=== PATIENT | female | born 1950 | race Caucasian/White ===

== ENCOUNTER 2017-06-24 10:24 | Emergency (ER) | payer OTHER, MEDICAID ==
[~2017-06-24] VITALS: Ht 157.5 cm; Wt 73.9 kg
[2017-06-24 10:52] VITALS: BP 141/62
[2017-06-24] MEDS ORDERED: MORPHINE SULFATE 10 MG/ML INJ 1ML SDV IM ONE (11:30)
[2017-06-24] MEDS ORDERED: ONDANSETRON HCL 4 MG/2 ML VIAL IM ONE (11:30)
== END 2017-06-24 12:10 | disposition home or self-care (01) ==
LOC: ER 10:24
DX: M54.5 Low back pain (principal); M79.1 Myalgia; F17.210 Nicotine dependence, cigarettes, uncomplicated; Z90.49 Acquired absence of other specified parts of digestive tract
CPT/HCPCS: 72131; 96372; 99284; J2270; J2405

== ENCOUNTER 2017-07-19 12:02 | Emergency (ER) | payer OTHER, MEDICAID ==
[~2017-07-19] VITALS: Ht 157.5 cm; Wt 74.5 kg
[2017-07-19] MEDS ORDERED: cloNIDine HCL 0.1 MG TAB PO ONE (12:30)
[2017-07-19 13:09] VITALS: BP 154/90
== END 2017-07-19 14:40 | disposition home or self-care (01) ==
LOC: ER 12:02
DX: J44.9 Chronic obstructive pulmonary disease, unspecified (principal); I10 Essential (primary) hypertension; M19.90 Unspecified osteoarthritis, unspecified site; F17.210 Nicotine dependence, cigarettes, uncomplicated; M54.9 Dorsalgia, unspecified; G89.29 Other chronic pain; Z90.49 Acquired absence of other specified parts of digestive tract; Z90.710 Acquired absence of both cervix and uterus; M79.605 Pain in left leg; Z98.51 Tubal ligation status
CPT/HCPCS: 71010; 72100; 93971